=== PATIENT | female | born 1995 | race Caucasian/White ===

== ENCOUNTER → 2024-08-17 07:49 | Outpatient (REF) | payer OTHER, BC, SELFPAY | LOC: PNTC 07:49 | PROVIDERS: ATTENDING PHYSICIAN Obstetrics & Gynecology | DX: Z36.82 Encounter for antenatal screening for nuchal translucency (principal); O99.321 Drug use complicating pregnancy, first trimester; F19.90 Other psychoactive substance use, unspecified, uncomplicated; Z3A.12 12 weeks gestation of pregnancy | CPT/HCPCS: 76801; 76813 ==

== ENCOUNTER 2024-12-29 16:40 | Observation (INO) | payer OTHER, SELFPAY ==
[2024-12-29 16:59] VITALS: BP 115/70; BMI 28.5
[2024-12-29 17:28] LABS: Urine Albumin Negative (Neg - Trace); Urine Bilirubin Negative (Negative); Urine Character Slightly Cloudy (Clear); Urine Color Yellow; Urine Glucose Negative (Negative); Urine Ketone 3+ (Negative); Urine Leukocyte 1+ (Negative); Urine Nitrite Negative (Negative); Urine Occult Blood Negative (Negative); Urine Specific Gravity 1.015 (<1.030); Urine Urobilinogen Negative (Neg - 1+)
[2024-12-29] MEDS: LR 1000 IV (17:29)
[2024-12-29 17:53] LABS: Urine Bacteria Few (Negative); Urine Red Blood Cell 0-2 /HPF (0-2); Urine Squamous Cell 16-20 /LPF (Few); Urine White Cell 0-2 /HPF (0-5)
== END 2024-12-29 18:10 | disposition home or self-care (01) ==
LOC: LDRP 16:40
PROVIDERS: ADMITTING PHYSICIAN Student in an Organized Health Care Education/Training Program; ATTENDING PHYSICIAN Obstetrics & Gynecology
DX: O47.03 False labor before 37 completed weeks of gestation, third trimester (principal); O36.80X0 Pregnancy with inconclusive fetal viability, not applicable or unspecified; O99.343 Other mental disorders complicating pregnancy, third trimester; F32.A Depression, unspecified; F41.9 Anxiety disorder, unspecified; Z3A.31 31 weeks gestation of pregnancy
CPT/HCPCS: 59025; 76805; 76817; 76818; 81003; 81015; 87086; G0378

== ENCOUNTER → 2025-01-05 09:58 | Outpatient (REF) | payer OTHER, SELFPAY | LOC: PNTC 09:58 | PROVIDERS: ATTENDING PHYSICIAN Student in an Organized Health Care Education/Training Program | DX: O9A.219 Injury, poisoning and certain other consequences of external causes complicating pregnancy, unspecified trimester (principal) | CPT/HCPCS: 59025; 76815 ==

== ENCOUNTER 2025-02-25 09:52 | Inpatient (IN) | payer OTHER, SELFPAY ==
[2025-02-25 10:07] VITALS: BMI 30.1
[2025-02-25 10:08] VITALS: BP 118/85
[2025-02-25] MEDS: PITOCIN 30 UNITS/NSS 500 ML IV (10:50)
[2025-02-25 10:58] LABS: % Basophils 0.3 % (0-2); % Eosinophils 0.9 % (0-6); % Immature Granulocytes 0.4 % (0-0.5); % Lymphocytes 21.3 % (20.5-51.1); % Monocytes 6.3 % (1.7-9.3); % Neutrophils 70.8 % (42.2-75.2); Absolute Eosinophils 0.1 10^3/uL (0-0.7); Absolute Lymphocytes 2.1 10^3/uL (1.2-3.4); Absolute Monocytes 0.6 10^3/uL (0.1-0.6); Hematocrit 31.4 % (37.0-47.0); Mean Corpuscular Volume 85.6 fL (81.0-99.0); Mean Platelet Volume 11.3 fL (7.4-10.4); Nucleated Red Blood Cells % 0 %; Platelet Count 146 10^3/uL (130-400); Red Blood Cell Count 3.67 10^6/uL (4.20-5.40); Red Cell Dist. Width 13.2 % (11.5-14.5); White Blood Cell Count 9.9 10^3/uL (4.8-10.8)
[2025-02-25] MEDS: SUBLIMAZE 100 MCG EPIDURAL (15:22)
[2025-02-25] MEDS: FENTANYL/BUPIVACAINE 100 EPIDURAL (15:22)
[2025-02-25] MEDS: LR 1000 IV (15:39)
[2025-02-25] MEDS: MOTRIN 600 MG PO (21:59)
[2025-02-26] MEDS: TYLENOL 650 MG PO ×4 (02:25→16:48)
[2025-02-26] MEDS: MOTRIN 600 MG PO ×3 (05:31→19:46)
[2025-02-26 05:35] LABS: Hematocrit 28.2 % (37.0-47.0); Hemoglobin 10.1 g/dL (12.0-16.0)
[2025-02-26] MEDS: ZOLOFT 50 MG PO (08:19)
[2025-02-26] MEDS: FEOSOL 325 MG PO (08:19)
[2025-02-26] MEDS: PRENATAL PLUS 1 TABLET PO (08:19)
[2025-02-26] MEDS: SENOKOT-S 1 TABLET PO (08:21)
[2025-02-27] MEDS: MOTRIN 600 MG PO ×2 (04:06→10:05)
[2025-02-27] MEDS: TYLENOL 650 MG PO ×2 (04:06→08:32)
[2025-02-27] MEDS: PRENATAL PLUS 1 TABLET PO (08:23)
[2025-02-27] MEDS: ZOLOFT 50 MG PO (08:23)
[2025-02-27] MEDS: FEOSOL 325 MG PO (08:23)
[2025-02-27] MEDS: SENOKOT-S 1 TABLET PO (08:32)
== END 2025-02-27 12:58 | disposition home or self-care (01) | DRG 807 ==
LOC: LDRP 09:52
PROVIDERS: ADMITTING PHYSICIAN Obstetrics & Gynecology; FAMILY PHYSICIAN Family Medicine
PROC: 3E033VJ Introduction of Other Hormone into Peripheral Vein, Percutaneous Approach (ICD-10-PCS; 2025-02-25)
PROC: 10E0XZZ Delivery of Products of Conception, External Approach (ICD-10-PCS; 2025-02-25)
PROC: 0KQM0ZZ Repair Perineum Muscle, Open Approach (ICD-10-PCS; 2025-02-25)
PROC: 10907ZC Drainage of Amniotic Fluid, Therapeutic from Products of Conception, Via Natural or Artificial Opening (ICD-10-PCS; 2025-02-25)
DX: O77.0 Labor and delivery complicated by meconium in amniotic fluid (principal); Z37.0 Single live birth; Z3A.39 39 weeks gestation of pregnancy; O69.81X0 Labor and delivery complicated by cord around neck, without compression, not applicable or unspecified
CPT/HCPCS: 88307; 36415; 85014; 85018; 85025; 86780; 86850; 86900; 86901